=== PATIENT | male | born 1965 | race Caucasian/White ===

== ENCOUNTER 2016-10-02 13:39 | Emergency (ER) | payer OTHER ==
[~2016-10-02] VITALS: Ht 165.1 cm; Wt 101.2 kg
[~2016-10-02 13:39] MED LIST: ZOCOR40 M1 PO; ZOCOR5 MG PO
[2016-10-02 14:04] VITALS: BP 116/73
--- NOTE | 2016-10-02 15:02 | NUR ---
PT AMBULATED TO BED 1
--- NOTE | 2016-10-02 15:02 | NUR ---
PATIENT PRESENTS TO ED WITH COLD SYMPTOMS X15 DAYS. COUGH, FEVER, CHEST CONGESTION. PT STATES HE HAS BEEN ON 2 DIFFERENT ANTIBIOTICS. DENIES N/V/D; SKIN IS PINK/WARM/DRY; AAOX4 WITH EVEN AND STEADY GAIT; LUNGS CLEAR BL; HR EVEN AND REGULAR; PT DENIES CP AT THIS TIME; PATIENT STATES PAIN OF 6/10 AT THIS TIME; VSS; PATIENT POSITIONED FOR COMFORT; HOB ELEVATED; BEDRAILS UP X2; BED DOWN. ER MD MADE AWARE OF PT STATUS.
[2016-10-02] MEDS ORDERED: ALBUTEROL 0.083% 2.5 MG/3 ML NEBU INH ONE (16:00)
[2016-10-02] MEDS ORDERED: predniSONE 20 MG TAB PO ONE (16:00)
[2016-10-02] MEDS ORDERED: IPRATROPIUM 0.02% 0.5 MG/2.5 ML NEBU INH ONE (16:00)
--- NOTE | 2016-10-02 17:09 | NUR ---
Patient discharged with v/s stable. Written and verbal after care instructions given and explained. Patient alert, oriented and verbalized understanding of instructions. Ambulatory with steady gait. All questions addressed prior to discharge. ID band removed. Patient advised to follow up with PMD. Rx of ALBUTEROL AND PREDNISONE given. Patient educated on indication of medication including possible reaction and side effects. Opportunity to ask questions provided and answered.
[2016-10-02 17:10] VITALS: BP 138/77
== END 2016-10-02 17:09 | disposition home or self-care (01) ==
LOC: MED 13:39
DX: J98.01 Acute bronchospasm (principal); Z88.0 Allergy status to penicillin
CPT/HCPCS: 71010; 93005; 94640; 99284; J7512; J7613; J7644; Q0092

== ENCOUNTER 2016-10-09 21:13 | Emergency (ER) | payer OTHER ==
[~2016-10-09] VITALS: Ht 165.1 cm; Wt 101.2 kg
[2016-10-09 21:25] VITALS: BP 137/61
--- NOTE | 2016-10-09 22:34 | NUR ---
PT TAKEN TO BED 2
--- NOTE | 2016-10-09 22:43 | NUR ---
50Y/M PATIENT BIB FAMILY TO ED WITH C/O COUGH X 4 WKS. PATIENT STATES WAS HERE LAST WEEK FOR SAME REASON DX BRONCHITIS SENT HOME W/ STEROIDS. PATIENT STATES MEDS COMPLETED, COUGH PERSISTENT, HAS APPOINTMENT WITH PMD ON10/07/16, DENIES N/V/D. ; SKIN IS PINK/WARM/DRY; AAOX4 WITH EVEN AND STEADY GAIT; LUNGS CLEAR BL, C/O NON PRODUCTIVE COUGH AT THIS TIME; HR EVEN AND REGULAR; PT DENIES ANY FEVER, CP, SOB, OR COUGH AT THIS TIME; PATIENT STATES PAIN OF 8/10 AT THIS TIME; VSS; PATIENT POSITIONED FOR COMFORT; HOB ELEVATED; BEDRAILS UP X2; BED DOWN. ER MD MADE AWARE OF PT STATUS.
--- NOTE | 2016-10-09 23:35 | NUR ---
Dr. Perea evaluating patient at bedside.
[2016-10-09] MEDS ORDERED: ALBUTEROL SULFATE/IPRATROPIU 3 ML SOL IH ONE (23:45)
[2016-10-09] MEDS ORDERED: methylPREDNISolone SS 125 MG in WATER STERILE 2 ML IV ONE (23:45)
[2016-10-09] MEDS ORDERED: NACL 0.9% 2,000 ML IV ONE (23:45)
--- NOTE | 2016-10-10 00:03 | NUR ---
TAKE PATIENT TO CT
[2016-10-10] MEDS ORDERED: ACETAMIN/CODEINE 120/12MG-5ML 5 ML UDC PO ONE (00:15)
--- NOTE | 2016-10-10 00:25 | NUR ---
PT RETURN FROM CT
--- NOTE | 2016-10-10 01:24 | NUR ---
Redd pete in [facility] - 10/10/16 at 0125 by CESAR labs drawn at bedside
--- NOTE | 2016-10-10 01:45 | NUR ---
Patient discharged with v/s stable. Written and verbal after care instructions given and explained. Patient alert, oriented and verbalized understanding of instructions. Ambulatory with steady gait. All questions addressed prior to discharge. ID band removed. Patient advised to follow up with PMD. Rx of GUAIATUSSIN AC 100MG-10MG/5ML, LEVAQUIN 500 MG given. Patient educated on indication of medication including possible reaction and side effects. Opportunity to ask questions provided and answered.
[2016-10-10 01:50] VITALS: BP 106/68
== END 2016-10-10 01:45 | disposition home or self-care (01) ==
LOC: MED 21:13
DX: J20.9 Acute bronchitis, unspecified (principal); Z88.0 Allergy status to penicillin
CPT/HCPCS: 36415; 36600; 71010; 71250; 80053; 81001; 82803; 83605; 83880; 84484; 85025; 85610; 87040; 87086; 93005; 94640; 96361; 96374; 99285; J2930; J7030; J7620; Q0092

== ENCOUNTER 2018-04-14 18:18 | Emergency (ER) | payer OTHER ==
[~2018-04-14] VITALS: Ht 165.1 cm; Wt 90.7 kg
[~2018-04-14 18:18] MED LIST changes: +SIMV5TAB1 PO; -ZOCOR40 M1 PO; -ZOCOR5 MG PO
[2018-04-14 18:22] VITALS: BP 130/66
--- NOTE | 2018-04-14 18:27 | NUR ---
PT AMBULATED TO ER BED 06
--- NOTE | 2018-04-14 18:31 | NUR ---
52 YO M BIB W/ C/O DIZZINESS SINCE SUNDAY (6 DAYS). REPORTS HE HAD N/V WHEN IT BEGAN, BUT DENIES N/V AT THIS TIME. DENIES INJURY/TRAUMA TO THE NECK. DENIES FEVERS. PT AAOX4. GCS 15. CMS INTACT. RR EVEN AND UNLABORED. PT STATES THAT HE HAS TAKEN 3 DOSES OF MECLIZINE TODAY, NO HELPING. PT DENIES ANY OTHER MEDICAL ISSUES. ER MD MADE AWARE WILL CONTINUE TO MONITOR. HX DENIES RX ZOFRAN
--- NOTE | 2018-04-14 19:17 | NUR ---
PT TAKEN TO CT VIA W/C IN STABLE CONDITION
--- NOTE | 2018-04-14 19:18 | NUR ---
REPORT GIVEN TO ENE VIERA FOR CONTINUITY OF CARE
--- NOTE | 2018-04-14 19:18 | NUR ---
PT BACK FROM CT
--- NOTE | 2018-04-14 19:20 | NUR ---
RECEIVED REPORT FROM AM NURSE. PT RESTING IN BED, RR EVEN AND UNLABORED. PT REPORTS SLIGHT DIZZINESS. ALL NEEDS MET AT THIS TIME.
--- NOTE | 2018-04-14 19:23 | NUR ---
Dr. Huang evaluating patient at bedside.
[2018-04-14] MEDS ORDERED: DIAZEPAM PFS 10 MG/2 ML SYR IM ONE (19:35)
[2018-04-14 20:26] VITALS: BP 140/80
--- NOTE | 2018-04-14 20:26 | NUR ---
Patient discharged with v/s stable. Written and verbal after care instructions given and explained. Patient alert, oriented and verbalized understanding of instructions. Ambulatory with steady gait. All questions addressed prior to discharge. ID band removed. Patient advised to follow up with PMD. Rx of ZOFRAN, VALIUM given. Patient educated on indication of medication including possible reaction and side effects. Opportunity to ask questions provided and answered.
== END 2018-04-14 20:26 | disposition home or self-care (01) ==
LOC: MED 18:18
DX: R42 Dizziness and giddiness (principal); Z88.0 Allergy status to penicillin; Z79.899 Other long term (current) drug therapy
CPT/HCPCS: 70450; 93005; 96372; 99284; J3360

== ENCOUNTER 2018-11-24 10:57 | Emergency (ER) | payer OTHER ==
[~2018-11-24] VITALS: Ht 172.7 cm; Wt 78.1 kg
[~2018-11-24 10:57] MED LIST changes: -SIMV5TAB1 PO; +SIMV5TAB55 PO
[2018-11-24 11:15] VITALS: BP 117/67
--- NOTE | 2018-11-24 11:23 | NUR ---
PATIENT AMBULATED TO BED 5.
[2018-11-24] MEDS ORDERED: MORPHINE SULFATE 4 MG/ML SYR IM ONE (11:40)
[2018-11-24] MEDS ORDERED: KETOROLAC 60 MG/2 ML VIAL IM ONE (11:40)
[2018-11-24] MEDS ORDERED: IBUP-2213 PO (11:44)
--- NOTE | 2018-11-24 11:56 | NUR ---
IM PAIN MEDS GIVEN-NADR AT THIS TIME
--- NOTE | 2018-11-24 12:55 | NUR ---
CALLED CT, THEY STATED THEY ARE COMMING TO DISH UP PERSON PT AT THIS TIME.
--- NOTE | 2018-11-24 14:03 | NUR ---
PT RESTING IN BED, VSS. PT STATES BACK IS AT 3/10, BUT STATES THAT HE HASN'T TRIED TO MOVE IN A LONG TIME. PT ASKING HOW MUCH LONGER, INFORMED PT WE ARE WAITING FOR CT RESULTS
[2018-11-24 15:20] VITALS: BP 111/62
--- NOTE | 2018-11-24 15:20 | NUR ---
Patient discharged with v/s stable. Written and verbal after care instructions given and explained. Patient alert, oriented and verbalized understanding of instructions. Ambulatory with steady gait. All questions addressed prior to discharge. ID band removed. Patient advised to follow up with PMD. Rx of NAPROSYN given. Patient educated on indication of medication including possible reaction and side effects. Opportunity to ask questions provided and answered. Addendum: 11/24/18 at 1521 by LIVE DISCHARGED BY DR VALDES.
== END 2018-11-24 15:20 | disposition home or self-care (01) ==
LOC: MED 10:57
DX: S33.5XXA Sprain of ligaments of lumbar spine, initial encounter (principal); Z88.0 Allergy status to penicillin; Z79.1 Long term (current) use of non-steroidal anti-inflammatories (NSAID); Z79.899 Other long term (current) drug therapy; X58.XXXA Exposure to other specified factors, initial encounter; Y93.89 Activity, other specified; Y92.89 Other specified places as the place of occurrence of the external cause; Y99.8 Other external cause status
CPT/HCPCS: 72131; 81002; 96372; 99284; J1885; J2270

== ENCOUNTER 2019-03-20 01:50 | Emergency (ER) | payer OTHER ==
[~2019-03-20] VITALS: Ht 165.1 cm; Wt 108.9 kg
[~2019-03-20 01:50] MED LIST changes: +IBUP-2213 PO
[2019-03-20 02:00] VITALS: BP 125/76
--- NOTE | 2019-03-20 02:00 | NUR ---
53 Y/O MALE PRESENTS TO ED WITH C/O LLQ ABD PAIN. 04/12, NON-RADIATING. NO N/V/D. PAIN X1 DAY. AFEBRILE WITH VSS. X4 QUADRANT ABD SOUNDS PRESENT. SOFT NON-TENDER. ER MD AWARE. AT BEDSIDE. CONTINUE TO MONITOR.
--- NOTE | 2019-03-20 02:00 | NUR ---
TO BED # 12 AMBULATORY
--- NOTE | 2019-03-20 02:09 | NUR ---
Dr. Perea evaluating patient.
[2019-03-20] MEDS ORDERED: NACL 0.9% 1,000 ML IV ONE (02:18)
[2019-03-20] MEDS ORDERED: ONDANSETRON 4 MG/2 ML VIAL IVP ONE (02:20)
[2019-03-20] MEDS ORDERED: MORPHINE SULFATE 4 MG/ML SYR IVP ONE (02:20)
[2019-03-20 02:35] LABS: BASOPHILS % (AUTO) 0.3 % (0.0-2.0); EOSINOPHILS # (AUTO) 0.2 K/uL (0-0.4); EOSINOPHILS % (AUTO) 2.2 % (0.0-4.0); HEMATOCRIT 43.1 % (36-52); HEMOGLOBIN 14.6 g/dL (12.0-18.0); LYMPHOCYTES % (AUTO) 31.6 % (20.5-51.1); MEAN CORPUSCULAR HEMOGLOBIN 28 pg (27-31); MEAN CORPUSCULAR HGB CONC 34 g/dL (33-37); MEAN CORPUSCULAR VOLUME 82.7 fL (80-94); MONOCYTES # (AUTO) 0.8 K/uL (0.8-1.0); MONOCYTES % (AUTO) 8.4 % (1.7-9.3); NEUTROPHILS # (AUTO) 5.5 K/uL (1.8-7.7); NEUTROPHILS % (AUTO) 57.5 % (42.2-75.2); PLATELET COUNT (AUTO) 190 K/uL (140-450); RED BLOOD CELL COUNT(AUTO) 5.22 MIL/uL (4.20-6.10); WHITE BLOOD COUNT (AUTO) 9.5 K/uL (4.8-10.8)
[2019-03-20 02:45] LABS: ANION GAP 12.7 (8-16); CARBON DIOXIDE 26.8 mmol/L (21-32); CREATININE 1.1 mg/dL (0.7-1.3); POTASSIUM 3.5 mmol/L (3.5-5.1)
[2019-03-20 02:53] LABS: ALBUMIN 3.2 g/dL (3.4-5.0); TOTAL BILIRUBIN 0.6 mg/dL (0.0-1.0)
--- NOTE | 2019-03-20 03:19 | NUR ---
PT TAKEN TO CT
--- NOTE | 2019-03-20 03:30 | NUR ---
PT RETURN FROM CT
[2019-03-20] MEDS ORDERED: KETOROLAC 30 MG/ML VIAL IVP ONE (04:55)
[2019-03-20 05:20] VITALS: BP 114/63
--- NOTE | 2019-03-20 05:20 | NUR ---
Patient discharged with v/s stable. Written and verbal after care instructions given and explained. Patient alert, oriented and verbalized understanding of instructions. Ambulatory with steady gait. All questions addressed prior to discharge. ID band removed. Patient advised to follow up with PMD. Rx of BENTYL AND MIRALAX given. Patient educated on indication of medication including possible reaction and side effects. Opportunity to ask questions provided and answered.
== END 2019-03-20 05:20 | disposition home or self-care (01) ==
LOC: MED 01:50
DX: R10.32 Left lower quadrant pain (principal); Z88.0 Allergy status to penicillin; Z79.899 Other long term (current) drug therapy
CPT/HCPCS: 36415; 74176; 80053; 81002; 83690; 85025; 96374; 96375; 99284; J1885; J2270; J2405; J7030

== ENCOUNTER 2020-09-19 13:34 | Emergency (ER) | payer OTHER ==
[~2020-09-19] VITALS: Ht 167.6 cm; Wt 88.5 kg
[2020-09-19 13:47] VITALS: BP_SYST 116; BP_SYST 166; BP_DIAS 65
[2020-09-19 14:23] VITALS: BP 116/65
--- NOTE | 2020-09-19 14:24 | NUR ---
Patient discharged with v/s stable. Written and verbal after care instructions given and explained. Patient alert, oriented and verbalized understanding of instructions. Ambulatory with steady gait. All questions addressed prior to discharge. ID band removed. Patient advised to follow up with PMD. Rx of ALBUTEROL, PREDNISONE, TESSALON PERLES given. Patient educated on indication of medication including possible reaction and side effects. Opportunity to ask questions provided and answered.
--- NOTE | 2020-09-19 14:24 | NUR ---
NO NURSING INTERVENTIONS NEEDED
== END 2020-09-19 14:24 | disposition home or self-care (01) ==
LOC: MED 13:34
DX: U07.1 COVID-19 (principal); I10 Essential (primary) hypertension; Z88.0 Allergy status to penicillin
CPT/HCPCS: 99283

== ENCOUNTER 2022-01-13 19:37 | Emergency (ER) | payer OTHER ==
[~2022-01-13] VITALS: Ht 165.1 cm; Wt 87.1 kg
[2022-01-13 19:39] VITALS: BP 132/60
--- NOTE | 2022-01-13 19:50 | NUR ---
PT TAKEN TO ER BED 04
[2022-01-13] MEDS ORDERED: KETOROLAC 30 MG/ML VIAL IM ONE (20:50)
--- NOTE | 2022-01-13 20:53 | NUR ---
PT BIB SELF WITH COMPLAINT OF LEFT CHEST PAIN THAT STARTED THIS WEEK ON SUNDAY, PT STATES HE WAS SEEN AT [facility] ON SUNDAY AND WAS DISCHARGED WITH A [facility] RX AND HAS ONLY TAKEN IT ONCE. PT RATES CHEST PAIN 06/12, DOES NOT RADIATE, DENIES ANY SOB, N/V. PMH: HLD
[2022-01-13] MEDS ORDERED: KETOROLAC 30 MG/ML VIAL ONE (20:56)
[2022-01-13 21:13] LABS: BASOPHILS # (AUTO) 0.1 K/uL (0.00-0.22); BASOPHILS % (AUTO) 1.5 % (0.0-2.0); EOSINOPHILS # (AUTO) 0.1 K/uL (0-0.4); EOSINOPHILS % (AUTO) 1.6 % (0.0-4.0); HEMATOCRIT 37.5 % (36-52); HEMOGLOBIN 12.6 g/dL (12.0-18.0); LYMPHOCYTES # (AUTO) 2.5 K/uL (2.0-11.5); LYMPHOCYTES % (AUTO) 30.1 % (20.5-51.1); MEAN CORPUSCULAR HEMOGLOBIN 28 pg (27-31); MEAN CORPUSCULAR HGB CONC 34 g/dL (33-37); MEAN CORPUSCULAR VOLUME 84.2 fL (80-94); MONOCYTES % (AUTO) 11.9 % (1.7-9.3); NEUTROPHILS # (AUTO) 4.6 K/uL (1.8-7.7); NEUTROPHILS % (AUTO) 54.9 % (42.2-75.2); PLATELET COUNT (AUTO) 230 K/uL (140-450); RED BLOOD CELL COUNT(AUTO) 4.45 MIL/uL (4.20-6.10); RED CELL DISTRIBUTION WIDTH 13.5 % (11.6-13.7); WHITE BLOOD COUNT (AUTO) 8.4 K/uL (4.8-10.8)
[2022-01-13 21:34] LABS: ALBUMIN 3.6 g/dL (3.4-5.0); ANION GAP 7.8 (8-16); ASPARTATE AMINOTRANSFERASE 18 U/L (15-37); CARBON DIOXIDE 28.6 mmol/L (21-32); CHLORIDE 108 mmol/L (98-107); GFR ARICAN-AMERICAN 99 mL/min (>90); GLUCOSE 119 mg/dL (74-106); LIPASE 171 U/L (73-393); POTASSIUM 3.4 mmol/L (3.5-5.1); SODIUM SERUM 141 mmol/L (136-145); TOTAL BILIRUBIN 0.9 mg/dL (0.0-1.0); UREA NITROGEN, BLOOD 22 mg/dL (7-18)
[2022-01-13] MEDS ORDERED: POTASSIUM CHLORIDE 10 MEQ TABER PO ONE (22:15)
[2022-01-13] MEDS ORDERED: NAPR-54 PO (22:22)
--- NOTE | 2022-01-13 22:28 | NUR ---
PT IN BED RESTING COMFORTABLY STATES HE FEELS BETTER AND DENIES PAIN AT THIS MOMENT.
--- NOTE | 2022-01-14 02:20 | NUR ---
Patient discharged with v/s stable. Written and verbal after care instructions given and explained. Patient alert, oriented and verbalized understanding of instructions. Ambulatory with steady gait. All questions addressed prior to discharge. ID band removed. Patient advised to follow up with PMD. Rx of NAPROXEN 500 MG given. Patient educated on indication of medication including possible reaction and side effects. Opportunity to ask questions provided and answered.
[2022-01-14 02:26] VITALS: BP 132/60
== END 2022-01-14 02:20 | disposition home or self-care (01) ==
LOC: MED 19:37
DX: R07.89 Other chest pain (principal); I10 Essential (primary) hypertension; E78.5 Hyperlipidemia, unspecified; Z79.899 Other long term (current) drug therapy; Z79.1 Long term (current) use of non-steroidal anti-inflammatories (NSAID); E78.00 Pure hypercholesterolemia, unspecified; Z88.0 Allergy status to penicillin
CPT/HCPCS: 36415; 71045; 71250; 80053; 83690; 84484; 85025; 93005; 96372; 99285; J1885